=== PATIENT | male | born 1980 | race Two or more races ===

== ENCOUNTER 2021-07-04 17:05 | Emergency (ER) | payer BC ==
[2021-07-04] MEDS ORDERED: DIPHTH,PERTUSS(ACELL),TET 0.5 ML DISP.SYRIN IM ONE ×2 (17:14→17:36)
[2021-07-04 17:26] VITALS: BP 126/78; PULSE 48; TEMP 98.2; BMI 25.8
[2021-07-04] MEDS ORDERED: AMOX TR/POT CLAV 875MG/125MG TABLETS (FP) PO ONE (17:31)
[2021-07-04] MEDS ORDERED: AMOX TR/POT CLAV 875MG/125MG TABLETS (FP) ONE (17:36)
== END 2021-07-04 18:34 | disposition home or self-care (01) ==
LOC: FER 17:05
PROC: 3E0234Z Introduction of Serum, Toxoid and Vaccine into Muscle, Percutaneous Approach (ICD-10-PCS; principal; 2021-07-04)
DX: S91.342A Puncture wound with foreign body, left foot, initial encounter (principal); W45.8XXA Other foreign body or object entering through skin, initial encounter
CPT/HCPCS: 73630-TC-LT; 90715; 99283-25